=== PATIENT | female | born 1955 | race Caucasian/White ===

== ENCOUNTER 2017-02-18 06:57 | Day surgery (SDC) | payer BC ==
[~2017-02-18 06:57] MED LIST: Lactated Ringers 1,000 ML IV SCH; Lidocaine 1%/Sod Bicarbonate in NS 8.4% 1 ML Syringe IV PRN; Sodium Chloride 0.9% 10 ML Syringe FLUSH PRN
--- NOTE | 2017-02-18 07:32 | PCM.PREANE ---
Preanesthetic Assessment - Procedure Proposed Procedure: Repair of Right subluxing extensor carpi ulnaris - Anesthesia/Transfusion/Family Hx Anesthesia History: Prior Anesthesia Without Reaction Type of Anesthesia Reaction: Excessive Nausea/Vomiting Family History of Anesthesia Reaction: No Transfusion History: No Prior Transfusion(s) Intubation History: Unknown - Review of Systems General: No Symptoms Pulmonary: No Symptoms Cardiovascular: Other (HTN) Gastrointestinal: No symptoms Neurological: No Symptoms Other: Reports: None - Physical Assessment NPO Status Date: 02/17/17 NPO Status Time: 19:00 Pulse: 91 O2 Sat by Pulse Oximetry: 95 Respiratory Rate: 16 Blood Pressure: 156/98 Temperature: 36.9 C Height: 1.65 m Weight: 57.153 kg ASA Class: 2 Mental Status: Alert & Oriented x3 Airway Class: Mallampati = 2 Dentition: Reports: Normal Dentition Thyro-Mental Finger Breadths: 3 Mouth Opening Finger Breadths: 3 ROM/Head Extension: Full Lungs: Clear to auscultation, Normal respiratory effort Cardiovascular: Regular Rate, Regular Rhythm - Lab Values: Laboratory Last Values MRSA (PCR) Negative 02/12/17 12:50 - Allergies Allergies/Adverse Reactions: Allergies Allergy/AdvReac Type Severity Reaction Status Date / Time banana Allergy Headache Verified 02/17/17 16:26 - Blood Blood Available: No Product(s) Available: None - Anesthesia Plan Pre-Op Medication Ordered: None - Acknowledgements Anesthesia Type Planned: [place] Pt an Appropriate Candidate for the Planned Anesthesia: Yes Alternatives and Risks of Anesthesia Discussed w Pt/Guardian: Yes Pt/Guardian Understands and Agrees with Anesthesia Plan: Yes PreAnesthesia Questionnaire HEENT History: Reports: Impaired Vision, Other (See Below) Other HEENT History: conjunctivitis, R labryinthine unilateral reactive loss, palatal mass, glasses Cardiovascular History: Reports: Hypertension Respiratory History: Reports: Bronchitis, Recurrent Genitourinary History: Reports: Other (See Below) Other Genitourinary History: labial cyst 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 Musculoskeletal History: Reports: Other (See Below) Other Musculoskeletal History: restless leg syndrome Neurological History: Reports: Vertigo Psychiatric History: Reports: None Endocrine/Metabolic History: Reports: None Hematologic History: Reports: None Immunologic History: Reports: None Oncologic (Cancer) History: Reports: None Dermatologic History: Reports: None - Past Surgical History Head Surgeries/Procedures: Reports: None GI Surgical History: Reports: Colonoscopy Female Surgical History: Reports: Cervical Conization, Hysterectomy Neurological Surgical History: Reports: Other (See Below) Other Neurological Surgeries/Procedures: [id number] Fusion - SUBSTANCE USE Smoking Status *Q: Current Every Day Smoker (0.5ppd for 40+ years) - HOME MEDS Home Medications: Home Meds Calcium Carbonate [Calcium] 500 mg PO DAILY 02/17/17 [History] Cartilage/Collagen/Bor/Hyalur [Joint Health Tablet] 1 tab PO DAILY 02/17/17 [ History] Hydrochlorothiazide [Hydrochlorothiazide] 12.5 mg PO DAILY 02/17/17 [History] Multivitamin [Multivitamins] 1 tab PO DAILY 02/17/17 [History] [place]-3/DHA/Epa/Fish Oil [[place] 3 500 Softgel] 1 cap PO DAILY 02/17/17 [History] Quinapril [Accupril] 10 mg PO DAILY 02/17/17 [History] - CURRENT (IN HOUSE) MEDS Current Meds: Current Medications Lactated Ringer's (Ringers, Lactated) 1,000 mls @ 125 mls/hr IV ASDIRECTED GAYLE Stop: 02/18/17 23:00 Lidocaine/Sodium Bicarbonate (Buffered Lidocaine 1% In Ns 8.4%) 0.25 ml IV ONETIME PRN PRN Reason: Prior to IV Start Stop: 02/18/17 18:00 Sodium Chloride (Saline Flush) 10 ml FLUSH ASDIRECTED PRN PRN Reason: Keep Vein Open Stop: 02/18/17 18:00
[2017-02-18] MEDS ORDERED: Bupivacaine 0.25% 30 ML SDV ONE (07:41)
[2017-02-18] MEDS ORDERED: Propofol 200 MG/20 ML SDV ONE ×2 (07:52→09:24)
[2017-02-18] MEDS ORDERED: fentaNYL 100 MCG/2 ML SDV ONE (07:52)
[2017-02-18] MEDS ORDERED: Midazolam 1 MG/ML 2 ML SDV ONE (07:52)
[2017-02-18] MEDS ORDERED: Lidocaine 1% 4 ML ONE (07:53)
[2017-02-18] MEDS ORDERED: Lidocaine 0.5% 50 ML SDV ONE (07:53)
[2017-02-18] MEDS ORDERED: Sodium Bicarbonate 8.4% 50 MEQ/50 ML SDV ONE (07:53)
[2017-02-18] MEDS ORDERED: ceFAZolin 1 GM Vial ONE (07:58)
--- NOTE | 2017-02-18 09:49 | PCM48HPAN ---
Post Anesthesia Note - EVALUATION WITHIN 48HRS OF ANESTHETIC Vital Signs in Normal Range: Yes Patient Participated in Evaluation: Yes Respiratory Function Stable: Yes Airway Patent: Yes Cardiovascular Function Stable: Yes Hydration Status Stable: Yes Pain Control Satisfactory: Yes Nausea and Vomiting Control Satisfactory: Yes Mental Status Recovered: Yes
[2017-02-18] MEDS: fentaNYL 100 MCG/2 ML SDV IVPUSH PRN ×2 (10:08→10:26)
[2017-02-18] MEDS ORDERED: Acetaminophen/HYDROcodone 325-5 MG Tab PO SCH (11:30)
[2017-02-18 12:25] VITALS: BP 157/100
--- NOTE | 2017-02-18 22:19 | PCM.OPNOTE ---
- General Post-Op/Procedure Note Date of Surgery/Procedure: 02/18/17 Operative Procedure(s): right wrist extensor carpi ulnaris debridement with tendon sheath repair with extensor retinacular sling and TFCC repair Pre Op Diagnosis: right wrist subluxing extensor carpi ulnaris with possible TFCC tear Post-Op Diagnosis: Same Anesthesia Technique: Regional block Primary Surgeon: Sanjay Marie Anesthesia Provider: Julio Metcalf Color Artist: Blanca Fenton Color Artist: Stanislaw Del Castillo EBL in mLs: 5 Complications: None Condition: Good Free Text/Narrative:: Intake & Output 02/18/17 02/18/17 02/18/17 06:59 14:59 22:59 Intake Total 900 Balance 900
--- NOTE | 2017-02-18 22:57 | OR ---
DATE OF OPERATION: 02/18/2017 SURGEON: Sanjay Marie MD OPERATIVE PROCEDURE: Right wrist extensor carpi ulnaris, debridement of the tendon sheath repair with extensor retinacular sling, and triangular fibrocartilage repair. PREOPERATIVE DIAGNOSIS: Right wrist subluxing extensor carpi ulnaris with possible TFCC tear. POSTOPERATIVE DIAGNOSIS: Right wrist subluxing extensor carpi ulnaris with possible TFCC tear. ANESTHESIA: Regional [place] block. ANESTHESIA PROVIDER: Dr. Julio Metcalf. HOUSECALLS NURSE: Blanca Fenton PA-C. ESTIMATED BLOOD LOSS: Less than 5 mL. COMPLICATION: None. CONDITION: Stable. DESCRIPTION OF PROCEDURE: The patient was identified in the preop holding area. Proper site was marked and identified by the surgeon. The patient was taken back to the operating theater where after adequate anesthesia, the patient's right upper extremity, andressa block was then sterilely prepped and draped in the usual sterile fashion. OR time-out was performed. The patient received 2 g IV Ancef. At this time, incision was made between the 5th and 6th dorsal compartments. This was taken down and visualization of the extensor carpi ulnaris. Just to the distal aspect of the ulna, there was noted to be some tearing noted of the subsheath off the ulnar side. At this time, we also were going to do checking of the TFCC. T- capsulotomy was then performed on the ulnar side and this was taken down to the TFCC tear. There was noted to be a peripheral tear of the TFCC that was found to be unstable. At this time, two 1.5 mm Mitek suture anchors were placed in the ulna after the ulnar fovea region ulna was roughened up using a rongeur. The suture limbs were then passed through the TFCC and then this was tied down in a [id number] fashion to tighten down the TFCC to the anchors. At this time, another free 4-0 Vicryl was used to tie the tendon sub sheath down to the capsule as well as over the top of the extensor carpi ulnaris. A roughly 8 mm portion of the extensor retinaculum was then taken and advanced from the radial side over the top of the extensor carpi ulnaris and sutured over the top of the extensor carpi ulnaris into the periosteum and the sub sheath to help tighten up the carpi ulnaris subsheath. At this time, adequate saline was irrigated through the wound. 3-0 Vicryl was used for closure of the rest of the capsule as well as subcutaneously and Monocryl was used for the skin. The patient was placed in a long-arm splint and sent to PACU in stable condition. OPERATION PERFORMED: MMODAL /[id number]
== END 2017-02-18 12:00 | disposition home or self-care (01) ==
LOC: JD.SDS 06:57
PROVIDERS: ATTEND Orthopaedic Surgery
PROC: 0LQ50ZZ Repair Right Lower Arm and Wrist Tendon, Open Approach (ICD-10-PCS; principal; 2017-02-18)
DX: S63.591A Other specified sprain of right wrist, initial encounter (principal); S63.071A Subluxation of distal end of right ulna, initial encounter; J20.9 Acute bronchitis, unspecified; H81.11 Benign paroxysmal vertigo, right ear; I10 Essential (primary) hypertension; G25.81 Restless legs syndrome; F17.210 Nicotine dependence, cigarettes, uncomplicated; Z91.018 Allergy to other foods; Z79.899 Other long term (current) drug therapy; Z90.710 Acquired absence of both cervix and uterus; Z98.890 Other specified postprocedural states
CPT/HCPCS: 25107; 25275; 87641; A9270; J0690; J2250; J3010; J7120; 01810; C1713; J2704; J3490

== ENCOUNTER 2020-03-19 07:01 | Day surgery (SDC) | payer OTHER ==
[~2020-03-19 07:01] MED LIST changes: +Lidocaine 1%/Sod Bicarbonate in NS 8.4% 1 ML Syringe IDERM PRN; -Lidocaine 1%/Sod Bicarbonate in NS 8.4% 1 ML Syringe IV PRN
[2020-03-19] MEDS ORDERED: Dexamethasone 4 MG/ML 5 ML MDV ONE (07:11)
[2020-03-19] MEDS ORDERED: ceFAZolin 1 GM Vial ONE (07:11)
[2020-03-19] MEDS ORDERED: Ondansetron 4 MG/2 ML SDV ONE (07:11)
[2020-03-19] MEDS ORDERED: Midazolam 1 MG/ML 2 ML SDV ONE (07:11)
[2020-03-19] MEDS ORDERED: fentaNYL 250 MCG/5 ML SDV ONE (07:11)
[2020-03-19] MEDS ORDERED: Rocuronium 50 MG/5 ML Vial ONE ×2 (07:11→07:12)
[2020-03-19] MEDS ORDERED: Lidocaine 1% 4 ML ONE (07:11)
[2020-03-19] MEDS ORDERED: Lactated Ringers 1,000 ML ONE ×2 (07:11→08:40)
[2020-03-19] MEDS ORDERED: Propofol 200 MG/20 ML SDV ONE (07:11)
[2020-03-19] MEDS ORDERED: Sodium Chloride 0.9% 50 ML SDV ONE (07:16)
[2020-03-19] MEDS ORDERED: Lidocaine 1% with EPINEPHrine 1:100,000 20 ML MDV ONE (07:16)
[2020-03-19] MEDS ORDERED: Scopolamine 1.5 MG Transdermal Patch TRDERM PRN (07:26)
--- NOTE | 2020-03-19 07:46 | PCM.PREANE ---
Preanesthetic Assessment - Procedure Proposed Procedure: Anterior and Posterior Repair - Anesthesia/Transfusion/Family Hx Anesthesia History: Prior Anesthesia Reaction Type of Anesthesia Reaction: Excessive Nausea/Vomiting Family History of Anesthesia Reaction: No Transfusion History: No Prior Transfusion(s) Intubation History: Unknown - Review of Systems General: No Symptoms Pulmonary: Cough (Smoker 1/2 pack per day) Cardiovascular: No Symptoms Gastrointestinal: No Symptoms Neurological: Other (C5-C7 fusion) Other: Reports: None (Sesonal Allergies, sinusitis, vertigo.) - Physical Assessment NPO Status Date: 03/19/20 NPO Status Time: 22:00 Vital Signs: Last Vital Signs Temp 36.4 C 03/19/20 07:10 Pulse 92 03/19/20 07:10 Resp 16 03/19/20 07:10 BP 157/92 H 03/19/20 07:10 Pulse Ox 95 03/19/20 07:10 Weight: 56 kg ASA Class: 2 Mental Status: Alert & Oriented x3 Airway Class: Mallampati = 2 (Cyst noted, monitored by ENT and Dentist. No changes for years.) Dentition: Reports: Caries (Chipped teeth, brown in color. ) Thyro-Mental Finger Breadths: 2 Mouth Opening Finger Breadths: 3 ROM/Head Extension: Full Lungs: Clear to Auscultation, Normal Respiratory Effort Cardiovascular: Regular Rate, Regular Rhythm - Lab Values: Laboratory Last Values WBC 7.19 K/mm3 (3.98-10.04) 03/19/20 07:20 RBC 5.28 M/mm3 (3.98-5.22) H 03/19/20 07:20 Hgb 17.0 gm/dl (11.2-15.7) H 03/19/20 07:20 Hct 49.6 % (34.1-44.9) H 03/19/20 07:20 MCV 93.9 fl (79.4-94.8) 03/19/20 07:20 MCH 32.2 pg (25.6-32.2) 03/19/20 07:20 MCHC 34.3 g/dl (32.2-35.5) 03/19/20 07:20 RDW Std Deviation 49.3 fL (36.4-46.3) H 03/19/20 07:20 Plt Count 343 K/mm3 (182-369) 03/19/20 07:20 MPV 8.5 fl (9.4-12.3) L 03/19/20 07:20 Neut % (Auto) 63.1 % (34.0-71.1) 03/19/20 07:20 Lymph % (Auto) 23.9 % (19.3-51.7) 03/19/20 07:20 Hale % (Auto) 11.5 % (4.7-12.5) 03/19/20 07:20 Eos % (Auto) 0.6 (0.7-5.8) L 03/19/20 07:20 Baso % (Auto) 0.6 % (0.1-1.2) 03/19/20 07:20 Neut # (Auto) 4.54 K/mm3 (1.56-6.13) 03/19/20 07:20 Lymph # (Auto) 1.72 K/mm3 (1.18-3.74) 03/19/20 07:20 Hale # (Auto) 0.83 K/mm3 (0.24-0.36) H 03/19/20 07:20 Eos # (Auto) 0.04 K/mm3 (0.04-0.36) 03/19/20 07:20 Baso # (Auto) 0.04 K/mm3 (0.01-0.08) 03/19/20 07:20 COVID-19 PCR Not detected (NOT DETECT) 03/15/20 10:00 - Allergies Allergies/Adverse Reactions: Allergies Allergy/AdvReac Type Severity Reaction Status Date / Time banana AdvReac Headache Verified 03/19/20 07:57 - Anesthesia Plan Pre-Op Medication Ordered: Anxiolytic, Other (Scopalamine Patch) - Acknowledgements Anesthesia Type Planned: General Anesthesia Pt an Appropriate Candidate for the Planned Anesthesia: Yes Alternatives and Risks of Anesthesia Discussed w Pt/Guardian: Yes Pt/Guardian Understands and Agrees with Anesthesia Plan: Yes PreAnesthesia Questionnaire HEENT History: Reports: Allergic Rhinitis, Impaired Vision, Sinusitis, Other (See Below) Other HEENT History: conjunctivitis, R labryinthine unilateral reactive loss, palatal mass, glasses Cardiovascular History: Reports: Hypertension Respiratory History: Reports: Bronchitis, Recurrent, Other (See Below) Other Respiratory History: cough Gastrointestinal History: Reports: None Genitourinary History: Reports: Other (See Below) Other Genitourinary History: labial cyst, abnormal UA, cystocele, hematuria 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) Other OB/BYN History: atrophic vaginitis, labial cyst, breast neoplasm-malignant with lumpectomy Musculoskeletal History: Reports: Osteoporosis, Other (See Below) Other Musculoskeletal History: restless leg syndrome Neurological History: Reports: Migraines, Neuropathy, Peripheral, Vertigo Psychiatric History: Reports: None Endocrine/Metabolic History: Reports: Osteopenia Hematologic History: Reports: Other (See Below) Other Hematologic History: erythrocytosis Immunologic History: Reports: None Oncologic (Cancer) History: Reports: None Dermatologic History: Reports: None - Past Surgical History Head Surgeries/Procedures: Reports: None HEENT Surgical History: Reports: Cataract Surgery Cardiovascular Surgical History: Reports: None Respiratory Surgical History: Reports: None GI Surgical History: Reports: Colonoscopy Female Surgical History: Reports: Cervical Conization, Hysterectomy Endocrine Surgical History: Reports: None Neurological Surgical History: Reports: Other (See Below) Other Neurological Surgeries/Procedures: [id number] Fusion Musculoskeletal Surgical History: Reports: ORIF Other Musculoskeletal Surgeries/Procedures:: right wrist Oncologic Surgical History: Reports: None Dermatological Surgical History: Reports: None - SUBSTANCE USE Smoking Status *Q: Current Every Day Smoker Days Per Week of Alcohol Use: 7 Number of Drinks Per Day: 1 Total Drinks Per Week: 7 Recreational Drug Use History: No - HOME MEDS Home Medications: Home Meds Calcium Carbonate [Calcium] 500 mg PO BID 02/17/17 [History] Cartilage/Collagen/Bor/Hyalur [Joint Health Tablet] 1 tab PO DAILY 02/17/17 [H istory] Hydrochlorothiazide 12.5 mg PO DAILY 02/17/17 [History] Multivitamin [Multivitamins] 1 tab PO BID 02/17/17 [History] [place]-3/DHA/Epa/Fish Oil [[place] 3 500 Softgel] 1 cap PO DAILY 02/17/17 [History] Quinapril [Accupril] 10 mg PO DAILY 02/17/17 [History] Alendronate Sodium 70 mg PO MO 03/18/20 [History] Fexofenadine HCl [Hermelinda Allergy] 60 mg PO DAILY 03/18/20 [History] Magnesium 250 mg PO DAILY 03/18/20 [History] Montelukast Sodium 10 mg PO DAILY 03/18/20 [History] estradioL [Estradiol] 1 dose VAG MOTH 03/18/20 [History] - CURRENT (IN HOUSE) MEDS Current Meds: Current Medications Lactated Ringer's (Ringers, Lactated) 1,000 mls @ 125 mls/hr IV ASDIRECTED GAYLE Stop: 03/19/20 23:00 Lidocaine/Sodium Bicarbonate (Buffered Lidocaine 1% In Ns 8.4%) 0.25 ml IDERM ONETIME PRN PRN Reason: Prior to IV Start Stop: 03/19/20 18:00 Scopolamine (Transderm-Scop) 1.5 mg TRDERM Q72H PRN PRN Reason: Nausea Stop: 03/19/20 12:00 Last Admin: 03/19/20 07:33 Dose: 1.5 mg Documented by: Sodium Chloride (Saline Flush) 10 ml FLUSH ASDIRECTED PRN PRN Reason: Keep Vein Open Stop: 03/19/20 18:00 Discontinued Medications Cefazolin Sodium (Ancef) Confirm Administered Dose 2 gm .ROUTE .STK-MED ONE Stop: 03/19/20 07:12 Dexamethasone (Dexamethasone) Confirm Administered Dose 20 mg .ROUTE .STK-MED ONE Stop: 03/19/20 07:12 Fentanyl (Sublimaze) Confirm Administered Dose 250 mcg .ROUTE .STK-MED ONE Stop: 03/19/20 07:12 Lidocaine HCl (Xylocaine-Mpf 1%) Confirm Administered Dose 4 mls @ as directed .ROUTE .STK-MED ONE Stop: 03/19/20 07:12 Lactated Ringer's (Ringers, Lactated) Confirm Administered Dose 1,000 mls @ as directed .ROUTE .STK-MED ONE Stop: 03/19/20 07:12 Lidocaine/Epinephrine (Xylocaine 1% With Epinephrine 1:100,000) Confirm Administered Dose 20 ml .ROUTE .STK-MED ONE Stop: 03/19/20 07:17 Midazolam HCl (Versed 1 Mg/Ml) Confirm Administered Dose 2 mg .ROUTE .STK-MED ONE Stop: 03/19/20 07:12 Ondansetron HCl (Zofran) Confirm Administered Dose 4 mg .ROUTE .STK-MED ONE Stop: 03/19/20 07:12 Propofol (Diprivan 20 Ml) Confirm Administered Dose 400 mg .ROUTE .STK-MED ONE Stop: 03/19/20 07:12 Rocuronium [place] (Zemuron) Confirm Administered Dose 50 mg .ROUTE .STK-MED ONE Stop: 03/19/20 07:12 Rocuronium [place] (Zemuron) Confirm Administered Dose 50 mg .ROUTE .STK-MED ONE Stop: 03/19/20 07:13 Sodium Chloride (Normal Saline) Confirm Administered Dose 50 ml .ROUTE .STK-MED ONE Stop: 03/19/20 07:17
[2020-03-19] MEDS ORDERED: ePHEDrine Sulfate/0.9% NaCl/Pf 25 MG/5 ML SYRINGE IV ONE (08:33)
[2020-03-19] MEDS ORDERED: HYDROmorphone 0.5 MG/0.5 ML Syringe IVPUSH PRN (08:43)
[2020-03-19] MEDS ORDERED: Ondansetron 4 MG/2 ML SDV IVPUSH PRN (08:43)
[2020-03-19] MEDS ORDERED: fentaNYL 100 MCG/2 ML SDV IVPUSH PRN (08:43)
--- NOTE | 2020-03-19 09:01 | PCM.OPNOTE ---
- General Post-Op/Procedure Note Date of Surgery/Procedure: 03/19/20 Operative Procedure(s): anterior colporraphy and mid-urethral sling Pre Op Diagnosis: cystocele Post-Op Diagnosis: Same Anesthesia Technique: General LMA Primary Surgeon: Rudy Encarnacion Secondary Surgeon: Jcarlos Juan Anesthesia Provider: Aruna Mars Topographical Field Assistant: Pushpa Brantley (MS4) Reason Topographical Field Assistant Was Necessary: retraction, decrease co-morbidty and mortality Role of Topographical Field Assistant: retraction, decrease co-morbidty and mortality Fluid Replacement, Intraop: 1,200 Output, Urine Amount: 90 EBL in mLs: 2 Complications: None Condition: Good Free Text/Narrative:: patient was transported to the operating room and medical office building. Placed under general anesthesia with LMA mask. prepared and Draped in sterile fashion. Timeout performed. the patient exam under anesthesia showed no masses. The apex of the vagina was grasp and a inverted T incision was made and injecting 7 mL of 0.25% lidocaine with epinephrine were hydrodissection andpain management. The vaginal mucosa was undermined and incised to an area just below the cystoscopy urethral angle. Ut ilizing Metzenbaum scissors the plane was created and pushed caudad with opened up 4 x 4. Plication sutures were then placed beginning at the uterus area just below the cystoscopy urethral angle utilizing 0 Monocryl interrupted sutures plication sutures placed and reduced the cystocele. The redundant vaginal mucosa was excised. The vaginal mucosa was then closed with2-0 Monocryl running suture. Attention was then turned to the mid urethral sling. Marking the areas of the planned incision over the obturator foramen the vaginal mucosa beneath the urethra was then injected with 2 mL of 0.25% lidocaine with epinephrine and incised vertically and pushing the tissue cephalad until the obturator foramen could be palpated internally pushing the bladder away with the dissecting finger the trocar was introduced on the right side and sling attached and reversed through the incision. Same procedure was carried out on the right side. Confirming no vaginal mucosa fenestrations the #15 Hegar dilator was placed and the sling was brought to the Hegar dilator. The redundant sling mesh was cut at the skin line bilaterally over the obturator forama. The incision was closed approximating the vaginal mucosa with a running suture of 2-0 Monocryl. Patient tolerated procedure well transported postanesthesia care unit in satisfactory condition. No blood transfusions required blood los was minimal (2 mL) SCDs prior to transport patient had 240 mL of saline instilled to aid in early emptying of the bladder. sponge needle pack and instrument count correct 2.
--- NOTE | 2020-03-19 09:05 | PCM.POSTAN ---
POST ANESTHESIA ASSESSMENT - MENTAL STATUS Mental Status: Alert, Oriented - VITAL SIGNS Vital Signs: Last Vital Signs Temp 36.4 C 03/19/20 07:10 Pulse 92 03/19/20 07:10 Resp 16 03/19/20 07:10 BP 157/92 H 03/19/20 07:10 Pulse Ox 95 03/19/20 07:10 0900 97.4F 135/79 76 15 100% - RESPIRATORY Respiratory Status: Respiratory Rate WNL, Airway Patent, O2 Saturation Stable, Supplemental Oxygen - CARDIOVASCULAR CV Status: Pulse Rate WNL, Blood Pressure Stable - GASTROINTESTINAL GI Status: No Symptoms - PAIN Pain Score: 0 - POST OP HYDRATION Hydration Status: Adequate & Stable
--- NOTE | 2020-03-19 10:17 | PCM48HPAN ---
Post Anesthesia Note - EVALUATION WITHIN 48HRS OF ANESTHETIC Vital Signs in Normal Range: Yes Patient Participated in Evaluation: Yes Respiratory Function Stable: Yes Airway Patent: Yes Cardiovascular Function Stable: Yes Hydration Status Stable: Yes Pain Control Satisfactory: Yes Nausea and Vomiting Control Satisfactory: Yes Mental Status Recovered: Yes Vital Signs: Last Vital Signs Temp 36.4 C 03/19/20 09:30 Pulse 71 03/19/20 09:30 Resp 16 03/19/20 09:30 BP 167/94 H 03/19/20 09:30 Pulse Ox 17 L 03/19/20 09:30
[2020-03-19 10:45] VITALS: BP 168/87; PULSE 67
== END 2020-03-19 10:26 | disposition home or self-care (01) ==
LOC: JD.SDS 07:01
PROVIDERS: ATTEND Obstetrics & Gynecology
DX: N81.10 Cystocele, unspecified (principal); F17.210 Nicotine dependence, cigarettes, uncomplicated; I10 Essential (primary) hypertension; G62.9 Polyneuropathy, unspecified; M81.0 Age-related osteoporosis without current pathological fracture; G25.81 Restless legs syndrome; Z11.59 Encounter for screening for other viral diseases; Z79.899 Other long term (current) drug therapy; Z90.710 Acquired absence of both cervix and uterus; Z91.09 Other allergy status, other than to drugs and biological substances
CPT/HCPCS: 36415; 57240; 57288; 85025; 86850; 86900; 86901; 87635; A9270; C1771; J0171; J0690; J1100; J2001; J2250; J2405; J2704; J3010; J7120; 00942; U0002

== ENCOUNTER 2021-09-16 07:27 | Day surgery (SDC) | payer BC ==
[~2021-09-16 07:27] MED LIST changes: +Lidocaine 1% 4 ML ONE; +Propofol 200 MG/20 ML SDV ONE; +Sodium Chloride 0.9% 10 ML Syringe FLUSH SCH
[2021-09-16] MEDS ORDERED: Esmolol 100 MG/10 ML SDV ONE (07:58)
[2021-09-16 09:01] VITALS: BP 173/109; PULSE 79
== END 2021-09-16 09:10 | disposition home or self-care (01) ==
LOC: JD.SDS 07:27
PROVIDERS: ATTEND Surgery
DX: Z12.11 Encounter for screening for malignant neoplasm of colon (principal); K57.30 Diverticulosis of large intestine without perforation or abscess without bleeding; Z86.010 Personal history of colon polyps; I10 Essential (primary) hypertension; M81.0 Age-related osteoporosis without current pathological fracture; F17.200 Nicotine dependence, unspecified, uncomplicated; G25.81 Restless legs syndrome; E78.00 Pure hypercholesterolemia, unspecified; G43.909 Migraine, unspecified, not intractable, without status migrainosus; Z91.018 Allergy to other foods; Z79.899 Other long term (current) drug therapy; Z98.890 Other specified postprocedural states
CPT/HCPCS: 45378; J2704; J3490; J7120; 00812

== ENCOUNTER 2021-11-22 02:09 | Emergency (ER) | payer BC ==
[2021-11-22] MEDS ORDERED: Sodium Chloride 0.9% 10 ML Syringe FLUSH PRN (02:32)
[2021-11-22] MEDS ORDERED: HYDROmorphone 0.5 MG/0.5 ML Syringe IVPUSH ONE ×2 (02:53→04:53)
[2021-11-22] MEDS ORDERED: Ondansetron 4 MG/2 ML SDV IVPUSH ONE (02:53)
[2021-11-22] MEDS ORDERED: Sodium Chloride 0.9% 1,000 ML IV ONE (03:17)
[2021-11-22] MEDS ORDERED: Orphenadrine 100 MG Tab.ER PO STA (04:53)
[2021-11-22 05:24] VITALS: BP 107/77; PULSE 93
== END 2021-11-22 05:23 | disposition home or self-care (01) ==
LOC: JD.ED 02:09
DX: M25.512 Pain in left shoulder (principal); I95.1 Orthostatic hypotension; I10 Essential (primary) hypertension; Z28.310 Unvaccinated for COVID-19; Z91.018 Allergy to other foods; Z87.891 Personal history of nicotine dependence
CPT/HCPCS: 36415; 71046; 80053; 83735; 84484; 85025; 85610; 93005; 96374; 96375; 96376; 99285; A9270; J1170; J2405; J3490; J7030; 93010; 99284